=== PATIENT | female | born 1930 | race Caucasian/White ===

== ENCOUNTER 2019-04-19 12:47 | Inpatient (IN) | payer OTHER ==
[~2019-04-19 12:47] MED LIST: CEFAZOLIN 1 GM INJ; DESFLURANE 15 MIN; EPHEDrine 50 MG INJ; EPINEPHrine 0.1 MG/ML SYG; ETOMIDATE 20 MG INJ; LIDOCAINE 1% (MDV) 20 ML INJ; MIDAZOLAM 1 MG/ML 2 ML INJ; PHENYLephrine 10 MG INJ; ROCURONIUM 50 MG INJ
[2019-04-19] MEDS ORDERED: ROPIVACAINE 0.5 % 30 ML VIAL (13:53)
[2019-04-19] MEDS ORDERED: metroNIDAZOLE 500 MG/NS (PMX) 100 ML IVPB (14:28)
[2019-04-19] MEDS ORDERED: PHENYLephrine 10 MG INJ (15:15)
[2019-04-19] MEDS ORDERED: NORepinephrine 4 MG INJ ×2 (15:57→16:05)
[2019-04-19 17:12] LABS: ABNORMAL IP MESSAGE 1; HEMATOCRIT 27.2 % (37.0-47.0); HEMOGLOBIN 8.2 g/dl (12.0-16.0); MEAN CORPUSCULAR HEMOGLOBIN 28.4 pg (29.0-33.0); MEAN CORPUSCULAR HGB CONC 30.1 g/dl (32.0-37.0); MEAN CORPUSCULAR VOLUME 94.1 fl (82.0-101.0); MEAN PLATELET VOLUME 10.7 fl (7.4-10.4); NUCLEATED RED BLOOD CELLS% 1.7 /100WBC (0.0-0.0); PLATELET COUNT 100 10^3/UL (140-415); RED BLOOD COUNT 2.89 10^6/ul (4.20-5.40); RED CELL DISTRIBUTION WIDTH 18.6 % (11.5-14.5)
[2019-04-19 17:26] LABS: HOLD TRANSMISSIONS 1; POSITIVE DIFF @See below
[2019-04-19 17:27] LABS: ADD MAN DIFF? YES
[2019-04-19 17:31] LABS: ANION GAP 15 (5-13); CARBON DIOXIDE 11 mmol/L (21-31); CHLORIDE 115 mmol/L (97-110); GLUCOSE 129 mg/dl (70-220); POTASSIUM 4.7 mmol/L (3.5-5.1); SODIUM 141 mmol/L (135-144)
[2019-04-19 17:34] LABS: BLOOD UREA NITROGEN 46 mg/dl (7-20); CALCIUM 7.2 mg/dl (8.4-10.2); CREATININE 1.42 mg/dl (0.44-1.00); INR 2.66; PROTIME 28.4 Sec (11.9-14.9); PT RATIO 2.2
[2019-04-19 17:43] LABS: TROPONIN-I 0.028 ng/ml (0.000-0.120)
[2019-04-19 17:47] LABS: PARTIAL THROMBOPLASTIN TIME 63.4 Sec (23.0-35.0)
[2019-04-19] MEDS ORDERED: morphine 2 MG INJ IV (18:00)
[2019-04-19] MEDS ORDERED: ONDANSETRON 4 MG INJ IV (18:00)
[2019-04-19 18:01] LABS: LACTIC ACID 12.6 mmol/L (0.5-2.0)
[2019-04-19 18:21] LABS: ANISOCYTOSIS 2+ (0-0); BAND NEUTROPHILS #M 8.1 10^3/ul (0.0-0.6); BAND NEUTROPHILS % (M) 27 % (0-4); BASOPHIL #M 0.3 10^3/ul (0.0-0.0); BASOPHILS % (M) 1 % (0-2); ERYTHROBLAST% (NRBC) (M) 3 % (0-0); GIANT THROMBO% (M) 2 % (0-0); LYMPHOCYTES #M 1.8 10^3/ul (0.8-2.9); LYMPHOCYTES % (M) 6 % (15-51); METAMYELOCYTES #M 0.9 10^3/ul (0.0-0.0); METAMYELOCYTES %M 3 % (0-0); MICROCYTOSIS 2+ (0-0); MONOCYTE #M 0.6 10^3/ul (0.3-0.9); MONOCYTES % (M) 2 % (0-11); MYELOCYTES #M 1.5 10^3/ul (0.0-0.0); MYELOCYTES % (M) 5 % (0-0); PLATELET ESTIMATE DECREASED; POIKILOCYTOSIS 3+ (0-0); POLYCHROMASIA 3+ (0-0); PROMYELOCYTES #M 0.6 10^3/ul (0-0); PROMYELOCYTES % (M) 2 % (0-0); REACTIVE LYMPHOCYTES #M 0.3 10^3/ul (0.0-0.0); REACTIVE LYMPHOCYTES% (M) 1 % (0-0); SEG NEUT #M 18.3 10^3/ul (1.6-7.5); SEGMENTED NEUTROPHILS (M) % 53 % (39-77); SMUDGE%M 5 % (0-0)
[2019-04-19] MEDS: PIPER-TAZO 2.25 GM (PMX) 50 ML IVPB (18:30)
[2019-04-19 18:52] LABS: AADO2 Arterial 554.3 mmHg (7.0-24.0); Arterial Base Excess -23.8 mmol/L (-3.0-3); Arterial Blood Gas Oxygen Sat 96.3 mmHG (95.0-100.0); Arterial COHb 0.3 % (0.0-3.0); Arterial Fraction of Oxyhgb 95.6 % (93.0-99.0); Arterial HCO3 8.2 mmol/L (22.0-26.0); Arterial MetHb 0.4 % (0.0-1.5); Arterial pCO2 41.2 mmhg (35-45); MODE VENT - AC; Site A-Line
[2019-04-19] MEDS ORDERED: NA BICARBONATE 8.4% 50 ML SYG ×2 (18:54→20:00)
[2019-04-19] MEDS: NA BICARBONATE 8.4% 50 ML SYG IV (19:01)
[2019-04-19] MEDS: VASOPRESSIN 60 UNIT in DEXTROSE 5% 57 ML IV (19:03)
[2019-04-19 19:30] LABS: WHITE BLOOD COUNT 26.8 10^3/ul (4.8-10.8)
[2019-04-19 19:30] LABS: ABNORMAL IP MESSAGE 1; HEMATOCRIT 28.6 % (37.0-47.0); HEMOGLOBIN 9.1 g/dl (12.0-16.0); MEAN CORPUSCULAR HEMOGLOBIN 28.5 pg (29.0-33.0); MEAN CORPUSCULAR HGB CONC 31.8 g/dl (32.0-37.0); MEAN CORPUSCULAR VOLUME 89.7 fl (82.0-101.0); MEAN PLATELET VOLUME 12.4 fl (7.4-10.4); NUCLEATED RED BLOOD CELLS% 3.3 /100WBC (0.0-0.0); PLATELET COUNT 97 10^3/UL (140-415); RED BLOOD COUNT 3.19 10^6/ul (4.20-5.40); RED CELL DISTRIBUTION WIDTH 16.8 % (11.5-14.5)
[2019-04-19 19:33] LABS: ADD MAN DIFF? YES; POSITIVE DIFF @See below
[2019-04-19] MEDS ORDERED: EPINEPHrine 10 MCG/1ml (10 ML SYG) IV (20:00)
[2019-04-19] MEDS ORDERED: CA CHLORIDE 10% 10 ML SYRINGE (20:00)
[2019-04-19] MEDS ORDERED: NORepinephrine 8MG/250 ML (PMX 250 ML IV (20:00)
[2019-04-19] MEDS ORDERED: AMIODARONE 150 MG INJ (20:00)
[2019-04-19 20:12] LABS: D-DIMER > 10000.00 ng/ml (<460)
[2019-04-19] MEDS: PHYTONADIONE 10 MG in DEXTROSE 5% 50 ML IVPB (20:43)
[2019-04-19] MEDS: FLUCONAZOLE 100 MG/50 ML (PMX) 50 ML IVPB (20:44)
[2019-04-19] MEDS: MEROPENEM 500MG/50 ML (PMX) 50 ML IVPB (20:53)
[2019-04-19] MEDS: LINEZOLID 600 MG/D5W (PMX) 300 ML IVPB (20:53)
[2019-04-19] MEDS ORDERED: SODIUM BICARBONATE (IV ADD) 100 MEQ in DEXTROSE 5% 1,000 ML IV (21:00)
[2019-04-19] MEDS: SODIUM BICARBONATE (IV ADD) 150 MEQ in DEXTROSE 5% 1,000 ML IV (21:12)
[2019-04-19] MEDS: PHENYLephrine 40 MG in DEXTROSE 5% 246 ML IV (21:13)
[2019-04-19 21:38] LABS: BAND NEUTROPHILS #M 6.4 10^3/ul (0.0-0.6); BAND NEUTROPHILS % (M) 24 % (0-4); BASOPHIL #M 0.2 10^3/ul (0.0-0.0); BASOPHILS % (M) 1 % (0-2); EOSINOPHILS % (M) 2 % (0-7); ERYTHROBLAST% (NRBC) (M) 12 % (0-0); GIANT THROMBO% (M) 1 % (0-0); LYMPHOCYTES #M 2.1 10^3/ul (0.8-2.9); LYMPHOCYTES % (M) 8 % (15-51); METAMYELOCYTES #M 1.8 10^3/ul (0.0-0.0); METAMYELOCYTES %M 7 % (0-0); MONOCYTE #M 0.5 10^3/ul (0.3-0.9); MONOCYTES % (M) 2 % (0-11); MYELOCYTES #M 1.6 10^3/ul (0.0-0.0); MYELOCYTES % (M) 6 % (0-0); PLATELET ESTIMATE DECREASED; POIKILOCYTOSIS 2+ (0-0); POLYCHROMASIA 3+ (0-0); PROMYELOCYTES #M 1.3 10^3/ul (0-0); PROMYELOCYTES % (M) 5 % (0-0); SEG NEUT #M 13.5 10^3/ul (1.6-7.5); SEGMENTED NEUTROPHILS (M) % 44 % (39-77); SMUDGE%M 9 % (0-0)
[2019-04-19] MEDS ORDERED: DOPamine-D5W 1.6 MG/ML 250 ML (22:24)
[2019-04-19] MEDS: DOPamine-D5W 1.6 MG/ML 250 ML IV (22:37)
[2019-04-19 23:39] LABS: WHITE BLOOD COUNT 27.4 10^3/ul (4.8-10.8)
[2019-04-19 23:39] LABS: ABNORMAL IP MESSAGE 1; MEAN CORPUSCULAR HEMOGLOBIN 28.3 pg (29.0-33.0); MEAN CORPUSCULAR HGB CONC 29.5 g/dl (32.0-37.0); MEAN CORPUSCULAR VOLUME 95.9 fl (82.0-101.0); MEAN PLATELET VOLUME 11.7 fl (7.4-10.4); NUCLEATED RED BLOOD CELLS% 3.7 /100WBC (0.0-0.0); PLATELET COUNT 67 10^3/UL (140-415); RED BLOOD COUNT 2.19 10^6/ul (4.20-5.40); RED CELL DISTRIBUTION WIDTH 17.3 % (11.5-14.5)
[2019-04-19 23:49] LABS: HEMOGLOBIN 6.2 g/dl (12.0-16.0); POSITIVE DIFF @See below
[2019-04-19 23:50] LABS: ADD MAN DIFF? YES
[2019-04-19 23:57] LABS: ALANINE AMINOTRANSFERASE 147 IU/L (13-69); ALBUMIN 1.4 g/dl (3.3-4.9); ALBUMIN/GLOBULIN RATIO 0.77; ALKALINE PHOSPHATASE 59 IU/L (42-121); ANION GAP 22 (5-13); ASPARTATE AMINO TRANSFERASE 506 IU/L (15-46); BILIRUBIN,INDIRECT 0.6 mg/dl (0-1.1); BILIRUBIN,TOTAL 0.6 mg/dl (0.2-1.3); BLOOD UREA NITROGEN 46 mg/dl (7-20); CALCIUM 6.4 mg/dl (8.4-10.2); CARBON DIOXIDE 12 mmol/L (21-31); CHLORIDE 105 mmol/L (97-110); CREATININE 2.03 mg/dl (0.44-1.00); GLUCOSE 142 mg/dl (70-220); MAGNESIUM 2.6 mg/dl (1.7-2.5); PHOSPHORUS 11.4 mg/dl (2.5-4.9); SODIUM 139 mmol/L (135-144); TOTAL PROTEIN 3.2 g/dl (6.1-8.1)
[2019-04-20 00:06] LABS: POTASSIUM 6.2 mmol/L (3.5-5.1)
[2019-04-20 00:15] LABS: INR 2.75; PROTIME 29.1 Sec (11.9-14.9); PT RATIO 2.3
[2019-04-20] MEDS ORDERED: DEXTROSE 50% 50 ML SYRINGE ×2 (00:15→00:20)
[2019-04-20 00:17] LABS: PARTIAL THROMBOPLASTIN TIME 76.2 Sec (23.0-35.0)
[2019-04-20] MEDS ORDERED: EPINEPHrine 0.1 MG/ML SYG ×2 (00:19→00:20)
[2019-04-20] MEDS ORDERED: CALCIUM GLUCONATE 10% 1 GM in DEXTROSE 5% 100 ML IVPB (00:30)
[2019-04-20] MEDS ORDERED: INSULIN ASPART [NOVOLOG] 3 ML PEN SC (00:30)
[2019-04-20] MEDS ORDERED: NA BICARBONATE 8.4% 50 ML SYG IV (00:30)
[2019-04-20] MEDS ORDERED: DEXTROSE 50% 50 ML SYRINGE IV (00:30)
[2019-04-20 00:31] LABS: LACTIC ACID 21.4 mmol/L (0.5-2.0)
[2019-04-20 00:52] LABS: ADD MAN DIFF? NO
[2019-04-20 01:11] LABS: ANION GAP 12 (5-13); BLOOD UREA NITROGEN 24 mg/dl (7-20); CALCIUM 10.3 mg/dl (8.4-10.2); CHLORIDE 121 mmol/L (97-110); CREATININE 0.93 mg/dl (0.44-1.00); GLUCOSE 294 mg/dl (70-220); MAGNESIUM 1.6 mg/dl (1.7-2.5); POTASSIUM 3.6 mmol/L (3.5-5.1); SODIUM 142 mmol/L (135-144)
[2019-04-20 01:12] LABS: CARBON DIOXIDE 9 mmol/L (21-31)
[2019-04-20 01:14] LABS: ABNORMAL IP MESSAGE 1; BASOPHILS % 0.1 % (0.0-2.0); HEMATOCRIT 9.7 % (37.0-47.0); LYMPHOCYTES # 2.6 10^3/ul (0.8-2.9); MEAN CORPUSCULAR HEMOGLOBIN 28.3 pg (29.0-33.0); MEAN CORPUSCULAR HGB CONC 28.9 g/dl (32.0-37.0); MEAN PLATELET VOLUME 11.2 fl (7.4-10.4); MONOCYTE # 0.6 10^3/ul (0.3-0.9); MONOCYTES % 4.7 % (0.0-11.0); NEUTROPHILS % 44.1 % (39.0-77.0); NUCLEATED RED BLOOD CELLS # 1.2 10^3/ul (0.0-0.0); NUCLEATED RED BLOOD CELLS% 8.9 /100WBC (0.0-0.0); RED BLOOD COUNT 0.99 10^6/ul (4.20-5.40); RED CELL DISTRIBUTION WIDTH 17.8 % (11.5-14.5)
[2019-04-20 01:14] LABS: WHITE BLOOD COUNT 13.6 10^3/ul (4.8-10.8)
[2019-04-20 01:26] LABS: HEMOGLOBIN 2.8 g/dl (12.0-16.0); PLATELET COUNT 31 10^3/UL (140-415); POSITIVE DIFF @See below
[2019-04-20] MEDS ORDERED: ACCU-CHEK XX (02:30)
[2019-04-20 03:03] LABS: ANISOCYTOSIS 1+ (0-0); BAND NEUTROPHILS % (M) 22 % (0-4); BASOPHILS % (M) 4 % (0-2); EOSINOPHILS % (M) 3 % (0-7); ERYTHROBLAST% (NRBC) (M) 4 % (0-0); GIANT THROMBO% (M) 2 % (0-0); LYMPHOCYTES % (M) 11 % (15-51); METAMYELOCYTES #M 0.5 10^3/ul (0.0-0.0); METAMYELOCYTES %M 2 % (0-0); MICROCYTOSIS 1+ (0-0); MONOCYTE #M 0.8 10^3/ul (0.3-0.9); MONOCYTES % (M) 3 % (0-11); MYELOCYTES #M 0.8 10^3/ul (0.0-0.0); MYELOCYTES % (M) 3 % (0-0); PLATELET ESTIMATE DECREASED; POIKILOCYTOSIS 3+ (0-0); POLYCHROMASIA 3+ (0-0); PROMYELOCYTES #M 0.8 10^3/ul (0-0); PROMYELOCYTES % (M) 3 % (0-0); SEG NEUT #M 14.5 10^3/ul (1.6-7.5); SEGMENTED NEUTROPHILS (M) % 47 % (39-77); SMUDGE%M 7 % (0-0)
[2019-04-20] MEDS ORDERED: PANTOPRAZOLE 40 MG INJ IV (06:00)
[2019-04-20] MEDS ORDERED: PHYTONADIONE 10 MG in DEXTROSE 5% 50 ML IVPB (06:00)
== END 2019-04-20 01:13 | disposition expired | DRG 853 ==
LOC: SDS 12:47 → ICU 17:50 → SDS 22:34 → ICU 22:34
PROC: 0JB80ZZ Excision of Abdomen Subcutaneous Tissue and Fascia, Open Approach (ICD-10-PCS; principal; 2019-04-19 13:05)
PROC: 0D1L0ZM Bypass Transverse Colon to Descending Colon, Open Approach (ICD-10-PCS; 2019-04-19 13:05)
PROC: 0D1B0Z4 Bypass Ileum to Cutaneous, Open Approach (ICD-10-PCS; 2019-04-19 13:05)
PROC: 30233N1 Transfusion of Nonautologous Red Blood Cells into Peripheral Vein, Percutaneous Approach (ICD-10-PCS; 2019-04-19 13:05)
DX: A41.9 Sepsis, unspecified organism (principal); K65.8 Other peritonitis; R65.21 Severe sepsis with septic shock; K63.1 Perforation of intestine (nontraumatic); D65 Disseminated intravascular coagulation [defibrination syndrome]; C18.4 Malignant neoplasm of transverse colon; I96 Gangrene, not elsewhere classified; S36.039A Unspecified laceration of spleen, initial encounter; K91.89 Other postprocedural complications and disorders of digestive system; I46.9 Cardiac arrest, cause unspecified; E87.5 Hyperkalemia; X58.XXXA Exposure to other specified factors, initial encounter; Y92.234 Operating room of hospital as the place of occurrence of the external cause; Y83.2 Surgical operation with anastomosis, bypass or graft as the cause of abnormal reaction of the patient, or of later complication, without mention of misadventure at the time of the procedure
CPT/HCPCS: 36600; 71045; 80048; 80053; 82803; 82962; 83605; 83735; 84100; 84484; 85025; 85378; 85384; 85610; 85730; 87070; 87075; 87102; 88305; 92950; 94002; 94003; 94770